=== PATIENT | female | born 1950 | race Caucasian/White ===

== ENCOUNTER 2017-04-16 10:35 | Day surgery (SDC) | payer MEDICARE ==
[~2017-04-16 10:35] MED LIST: Buffered Lidocaine 0.9% SYRIN* 5 ML/SYR SYRINGE INTRADERM ONE
[2017-04-16] MEDS ORDERED: Clindamycin 900 MG IVPREMIX(* 900 MG/50 ML SDV IV ONE (10:44)
[2017-04-16] MEDS ORDERED: fentaNYL* 50 MCG/ML 2 ML VIAL (100 MCG VIAL) ONE (11:46)
[2017-04-16] MEDS ORDERED: Midazolam* 1 MG/ML 2 ML VIAL (2 MG) ONE ×2 (11:46→12:03)
[2017-04-16] MEDS ORDERED: Bupivacaine 0.25% SDV* 30 ML ONE (11:49)
[2017-04-16 13:15] VITALS: BP 107/62
== END 2017-04-16 13:20 | disposition home or self-care (01) ==
LOC: OREAST 10:35
PROVIDERS: ATTEND Plastic Surgery
DX: L72.0 Epidermal cyst (principal); J45.909 Unspecified asthma, uncomplicated; M19.90 Unspecified osteoarthritis, unspecified site; M79.7 Fibromyalgia
CPT/HCPCS: 88304; J2250; J3010